=== PATIENT | female | born 1980 | race Caucasian/White ===

== ENCOUNTER → 2017-06-07 | Outpatient (CLI) | payer OTHER ==
[~2017-06-07] MED LIST: Cleocin HCl300 MG PO; Naprosyn500 MG PO
[2017-06-08 16:24] LABS: HCV Non Reactive (NR)
== END ==
LOC: LAB SHORT 18:18 → LAB EV 18:18
PROVIDERS: Internal Medicine
DX: Z20.9 Contact with and (suspected) exposure to unspecified communicable disease (principal)
CPT/HCPCS: 84460; 86706; 86803; 87340; 87389

== ENCOUNTER → 2017-07-26 | Outpatient (CLI) | payer OTHER ==
[2017-07-28 06:14] LABS: HIV SCREEN 4TH GENERATION WRFX Non Reactive (Non Reactive)
== END | disposition home or self-care (01) ==
LOC: LAB EV 18:22 → LAB SHORT 18:22
PROVIDERS: Internal Medicine
DX: Z20.9 Contact with and (suspected) exposure to unspecified communicable disease (principal)
CPT/HCPCS: 86803; 87389

== ENCOUNTER → 2017-08-31 | Outpatient (CLI) | payer OTHER ==
[2017-09-02 06:09] LABS: HIV SCREEN 4TH GENERATION WRFX Non Reactive (Non Reactive)
== END | disposition home or self-care (01) ==
LOC: LAB SHORT 18:43 → LAB EV 18:43
PROVIDERS: Internal Medicine
DX: Z20.9 Contact with and (suspected) exposure to unspecified communicable disease (principal)
CPT/HCPCS: 87389

== ENCOUNTER 2017-10-23 16:23 | Emergency (ER) | payer OTHER ==
[~2017-10-23] VITALS: Ht 162.6 cm; Wt 108.9 kg
== END 2017-10-23 17:48 | disposition home or self-care (01) ==
LOC: ER 16:23
DX: K08.89 Other specified disorders of teeth and supporting structures (principal); Z87.891 Personal history of nicotine dependence
CPT/HCPCS: 99282